=== PATIENT | male | born 1985 | race Two or more races ===

== ENCOUNTER 2024-11-19 01:23 | Emergency (ER) | payer SELFPAY ==
[~2024-11-19] VITALS: Ht 167.6 cm; Wt 81.8 kg
[2024-11-19 01:26] VITALS: TEMP 97.9
[2024-11-19] MEDS: HYDROmorphone HCL 2 MG/ML SYRINGE IVP ONE (02:30)
[2024-11-19] MEDS: ONDANSETRON HCL 4 MG/2 ML VIAL IVP ONE (02:30)
[2024-11-19 02:32] LABS: BASOPHILS % (AUTO) 0.9 % (0.0-2.0); EOSINOPHILS % (AUTO) 1.1 % (1.0-6.0); HEMOGLOBIN 14.5 g/dL (13.5-17.5); LYMPHOCYTES # (AUTO) 1.6 K/uL (1.0-4.8); LYMPHOCYTES % (AUTO) 27.6 % (22.0-44.0); MEAN CORPUSCULAR HEMOGLOBIN 34.3 pg (26.0-34.0); MEAN CORPUSCULAR HGB CONC 35.4 G/dL (31.0-37.0); MEAN CORPUSCULAR VOLUME 97 fL (80-100); MONOCYTES # (AUTO) 0.5 K/uL (0.1-1.0); MONOCYTES % (AUTO) 8.5 % (2.0-9.0); NEUTROPHILS # (AUTO) 3.6 K/uL (1.8-7.7); NEUTROPHILS % (AUTO) 61.9 % (40.0-70.0); PLATELET COUNT (AUTO) 257 K/uL (150-450); RED BLOOD CELL COUNT(AUTO) 4.22 MIL/uL (4.50-5.90); WHITE BLOOD COUNT (AUTO) 5.8 K/uL (4.5-11.0)
[2024-11-19] MEDS: PERTUSS(ACELL),DIPH,TET/PF 0.5 ML SYRINGE [ADULT] IM. ONE (02:33)
[2024-11-19 02:46] LABS: ANION GAP 11 mmol/L (8-16); CALCIUM, TOTAL 8.6 mg/dL (8.8-10.5); CARBON DIOXIDE 27 mmol/L (22-29); CHLORIDE 103 mmol/L (98-107); CREATININE 1.01 mg/dL (0.60-1.30); GLOMERULAR FILTR. RATE CALC > 60 mL/min (>60); GLUCOSE,RANDOM 112 mg/dL (70-110); POTASSIUM 3.6 mmol/L (3.5-5.1); SODIUM SERUM 141 mmol/L (136-145); UREA NITROGEN, BLOOD 14 mg/dL (7-18)
[2024-11-19] MEDS: CeFAZolin 2 GM/DEXTROSE 50 ML IV ONE (03:02)
[2024-11-19] MEDS: MORPHINE SULFATE 4 MG/ML SYRINGE IVP ONE (05:23)
[2024-11-19] MEDS: LIDOCAINE 1% 10 ML VIAL SQ ONE ×2 (05:48→05:49)
[2024-11-19] MEDS: KETOROLAC TROMETHAMINE 30 MG/ML VIAL IVP ONE (05:50)
[2024-11-19] MEDS ORDERED: CEPH-558 PO (05:53)
[2024-11-19] MEDS ORDERED: HYDR-4062 PO (05:53)
[2024-11-19] MEDS ORDERED: IBUP-1554 PO (05:53)
[2024-11-19] MEDS ORDERED: BACI28.410 TP (05:53)
[2024-11-19 05:56] VITALS: BP 123/87; PULSE 80; RESP 16; O2SAT 99
== END 2024-11-19 06:31 | disposition home or self-care (01) ==
LOC: EMS 01:31
DX: S51.811A Laceration without foreign body of right forearm, initial encounter (principal); W39.XXXA Discharge of firework, initial encounter; Y93.01 Activity, walking, marching and hiking; Y92.89 Other specified places as the place of occurrence of the external cause; Y99.8 Other external cause status
CPT/HCPCS: 99284; 12032; 96365; 96375; 80048; 85025; 36415; 73090; 90715; 90471; G0480; J1171; J1885; J2270; J2405; J3490; J0690